=== PATIENT | male | born 1965 | race Two or more races ===

== ENCOUNTER 2017-08-28 19:02 | Emergency (ER) | payer OTHER ==
[2017-08-28 19:22] VITALS: BP 147/93
[2017-08-28] MEDS ORDERED: BACITRACIN OINT TOP STA (20:10)
[2017-08-28] MEDS ORDERED: TETANUS/DIPHTHERIA/PERTUSSIS 0.5 ML SYRINGE IM ONE (20:10)
--- NOTE | 2017-08-28 20:13 | ED Physician Documentation ---
PD HPI Fall - Stated complaint Stated Complaint: GLF - Chief complaint Chief Complaint: Laceration - History obtained from History obtained from: Patient - History of Present Illness Mechanism of injury: Slipped Fall distance: Sitting position Where injury occurred: Park Timing - onset: Today Injury(ies) location: Head, Right Lower Extremity, Left Lower Extremity Associated symptoms: No: LOC, AMS, Amnesia, Seizures Contributing factors: No: Anticoagulated Similar symptoms before: Has not had sx before Recently seen: Not recently seen - Additional information Additional information: Patient is a 51 year old male with no significant past medical history who is presenting to the emergency department after falling. patient states that he was on a hiking trail and it was too steep and the patient fell forward skinning his knees and hitting his head. patient denies any loc, nausea, vomiting, change in vision or headache. patient is not on blood thinners. Review of Systems Ten Systems: 10 systems reviewed and negative Neurologic: reports: Head injury. denies: Syncope, Altered mental status, Unresponsive, Headache, LOC PD PAST MEDICAL HISTORY - Past Medical History Past Medical History: Yes Endocrine/Autoimmune: Type 2 diabetes - Past Surgical History Past Surgical History: No - Present Medications Home Medications: Ambulatory Orders Medication Instructions Recorded Confirmed Home Medications Unobtainable 08/28/17 08/28/17 [HOME MEDICATIONS UNOBTAINABLE] - Allergies Allergies/Adverse Reactions: Allergies Allergy/AdvReac Type Severity Reaction Status Date / Time No Known Drug Allergies Allergy Verified 08/28/17 19:22 - Social History Does the pt smoke?: No Smoking Status: Never smoker Does the pt drink ETOH?: No Does the pt have substance abuse?: No - Immunizations Immunizations are current?: Yes - POLST Patient has POLST: No PD ED PE NORMAL - Vitals Vital signs reviewed: Yes - General General: Alert and oriented X 3, No acute distress, Well developed/nourished - HEENT HEENT: Ears normal, Dentition benign - Neck Neck: No bony TTP - Cardiac Cardiac: RRR - Respiratory Respiratory: No respiratory distress - Extremities Extremities: Normal ROM s pain - Neuro Neuro: Alert and oriented X 3, 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, No motor deficit, Normal speech Eye Opening: Spontaneous Motor: Obeys Commands Verbal: Oriented GCS Score: 15 PD ED PE EXPANDED - HEENT HEENT: Head injury (small abrasion over left eye, no laceration) - Extremities Extremities: Right knee (abrasion), Left knee (abrasion, ) Results - Vitals Vitals: Vital Signs - 24 hr 08/28/17 19:19 Temperature 36.8 C Heart Rate 76 Respiratory 18 Rate Blood Pressure 147/93 H O2 Saturation 98 Oxygen O2 Source Room air PD MEDICAL DECISION MAKING - ED course Complexity details: reviewed old records, reviewed results, re-evaluated patient , considered differential, d/w patient ED course: Patient was seen and examined at bedside. Patient was well appearing and in no distress. patient's wounds were cleaned and dressed. patient was treated with tdap. no imaging was indicated at this time. patient required no further work up and was stable for discharge with outpatient follow up. - Sepsis Event Vital Signs: Vital Signs - 24 hr 08/28/17 19:19 Temperature 36.8 C Heart Rate 76 Respiratory 18 Rate Blood Pressure 147/93 H O2 Saturation 98 Oxygen O2 Source Room air Departure - Departure Disposition: 01 Home, Self Care Clinical Impression: Abrasion Condition: Good Instructions: ED Abrasion Follow-Up: primary,care provider [Other] - As Needed Comments: it is important to keep your wounds clean and dry. you can apply topical antibiotic as needed. You can take motrin or tylenol as needed for pain. You can expect to be in more pain tomorrow and the next day. You should monitor for signs of infection and follow up with your doctor as needed. You may return to the emergency department at any time for new, worsening or uncontrollable symptoms. Discharge Date/Time: 08/28/17 20:22
== END 2017-08-28 20:22 | disposition home or self-care (01) ==
LOC: ED 19:02
DX: S00.81XA Abrasion of other part of head, initial encounter (principal); S80.212A Abrasion, left knee, initial encounter; S80.211A Abrasion, right knee, initial encounter; W01.0XXA Fall on same level from slipping, tripping and stumbling without subsequent striking against object, initial encounter; Y93.01 Activity, walking, marching and hiking; Y92.830 Public park as the place of occurrence of the external cause; E11.9 Type 2 diabetes mellitus without complications; Z23 Encounter for immunization
CPT/HCPCS: 90471; 99282; 99283